=== PATIENT | male | born 1935 | race African-American/Black ===

== ENCOUNTER 2018-06-28 08:35 | Inpatient (IN) ==
[2018-06-28] MEDS ORDERED: METOCLOPRAMIDE 10 MG/2 ML VIAL IV STA (09:02)
[2018-06-28] MEDS ORDERED: ONDANSETRON 4 MG/2 ML VIAL IV STA (09:02)
[2018-06-28] MEDS ORDERED: PANTOPRAZOLE 40 MG VIAL IV STA (09:02)
[2018-06-28] MEDS ORDERED: metroNIDAZOLE INJ 500 MG in PREMIX 1 EACH IV STA (09:28)
[2018-06-28] MEDS ORDERED: LEVOFLOXACIN INJ 750 MG in PREMIX 1 EACH IV STA (09:28)
[2018-06-28 09:41] LABS: Barbiturates Screen,Urine Negative (Negative); Benzodiazepines Screen,Urine Negative (Negative); Cannabinoid Screen,Urine Negative (Negative); Opiate Screen,Urine Negative (Negative); Phencyclidine Screen,Urine Negative (Negative)
[2018-06-28 09:42] LABS: Apearance,Urine CLEAR (Clear); Bacteria,Urine Occasional /HPF (Few); Bilirubin,Urine Negative (Negative); Blood, Urine Negative (Negative); Glucose,Urine (UA) Negative (Negative); Ketones,Urine 20 mg/dL (Negative); Mucus,Urine Occasional /LPF (Occasional); Nitrite,Urine Negative (Negative); Protein,Urine Negative; RBC,Urine 3 /HPF (0-4); Urine Color Straw (Yellow); Urine Urobilinogen < 2.0 EU/DL (0.2-1.0)
[2018-06-28] MEDS ORDERED: THIAMINE INJ 100 MG, FOLIC ACID INJ 1 MG, MAGNESIUM SULF INJ 2 GM, MULTIVITAMIN INJ 10 ... IV SCH (10:00)
[2018-06-28 10:08] LABS: Basophils # 0.1 10*3/uL (0.0-0.2); Basophils % 0.4 % (0.0-0.8); Hematocrit 44.6 VOL% (42.0-52.0); Hemoglobin 13.9 GM/DL (14.0-18.0); Immature Granulocytes % 0.7 %; Immature Granulocytes Absolute 0.11 #; Lymphocytes # 1.1 10*3/uL (1.4-4.0); Lymphocytes % 6.5 % (21.2-54.2); Mean Corpuscular HGB Conc 31.2 GM/DL (32-36); Mean Corpuscular Hemoglobin 30 PG (27-34); Mean Corpuscular Volume 95.7 FL (87-102); Mean Platelet Volume 12.8 FL (9.6-12.0); Monocytes # 1.7 10*3/uL (0.11-0.8); Monocytes % 9.9 % (1.7-12.7); NRBC # 0.02 10*3/uL; Neutrophils # 13.8 10*3/uL (1.4-7.4); Neutrophils % 82.5 % (38.7-73.9); Platelet Count 260 T/CUMM (130-400); Red Blood Count 4.66 MC/CUMM (3.8-5.5); Red Cell Distribution Width 17.2 % (9.3-17.3); White Blood Count 16.7 T/CUMM (4-12)
[2018-06-28 10:15] LABS: Troponin I < 0.015 NG/ML (0.00-0.045)
[2018-06-28 10:31] LABS: Alanine Aminotransferase 178 U/L (16-61); Albumin 4.3 G/DL (3.4-5.0); Alkaline Phosphatase 157 U/L (45-117); Amylase 117 U/L (25-115); Aspartate Amino Transferase 632 U/L (0-37); Blood Urea Nitrogen 15 MG/DL (7-18); Calcium 9.2 MG/DL (8.5-10.1); Glucose 118 MG/DL (74-106); Osmolality,Calculated 291.6 MOS/KG (273-304); Potassium 3.3 MMOL/L (3.5-5.1); Sodium 146 MMOL/L (136-145); Total Protein 8.3 G/DL (6.4-8.3); Troponin I < 0.015 NG/ML (0.00-0.045)
[2018-06-28] MEDS ORDERED: ONDANSETRON 4 MG/2 ML VIAL IV PRN (12:07)
[2018-06-28] MEDS ORDERED: LORazepam 2 MG/1 ML VIAL IV PRN (12:15)
[2018-06-28] MEDS ORDERED: SODIUM CHLORIDE 0.9% 1,000 ML IV SCH (12:30)
[2018-06-28] MEDS: AMPICILLIN/SULBACTAM 3,000 MG in SODIUM CHLORIDE 0.9% 100 ML IV SCH ×2 (14:16→18:43)
[2018-06-28] MEDS: ENOXAPARIN 40 MG/0.4 ML SYRINGE SUBCUT SCH (14:17)
[2018-06-28] MEDS: LACTATED RINGERS 1,000 ML IV SCH ×2 (14:17→22:38)
[2018-06-28] MEDS: MORPHINE 4 MG/1 ML VIAL IV PRN ×3 (14:17→22:38)
[2018-06-29] MEDS: AMPICILLIN/SULBACTAM 3,000 MG in SODIUM CHLORIDE 0.9% 100 ML IV SCH ×3 (01:54→12:30)
[2018-06-29 04:03] LABS: Basophils % 0.3 % (0.0-0.8); Eosinophils % 0.1 % (0.00-10.9); Hemoglobin 11.9 GM/DL (14.0-18.0); Immature Granulocytes % 0.8 %; Immature Granulocytes Absolute 0.12 #; Lymphocytes # 0.6 10*3/uL (1.4-4.0); Lymphocytes % 3.7 % (21.2-54.2); Mean Corpuscular HGB Conc 31.3 GM/DL (32-36); Mean Corpuscular Hemoglobin 29 PG (27-34); Mean Corpuscular Volume 93.1 FL (87-102); Monocytes # 0.7 10*3/uL (0.11-0.8); Monocytes % 4.8 % (1.7-12.7); Neutrophils % 90.3 % (38.7-73.9); Platelet Count 234 T/CUMM (130-400); Red Blood Count 4.08 MC/CUMM (3.8-5.5); Red Cell Distribution Width 15.9 % (9.3-17.3); White Blood Count 15.5 T/CUMM (4-12)
[2018-06-29 04:37] LABS: Albumin 3.3 G/DL (3.4-5.0); Bilirubin,Total 3.5 MG/DL (0.2-1.0); Calcium 8.4 MG/DL (8.5-10.1); Osmolality,Calculated 277.5 MOS/KG (273-304); Potassium 3.8 MMOL/L (3.5-5.1); Risk Ratio 3.48; Thyroid Stimulating Hormone 0.182 uIU/ml (0.358-3.74); Total Protein 6.9 G/DL (6.4-8.3); VLDL CHOLESTEROL 68.2 MG/DL
[2018-06-29 05:20] LABS: Band Neutrophils 11 % (0-10); Lymphocytes 5 % (20-55); Metamyelocytes 1 %; Segmented Neutrophils 81 % (50-85); Total Cells Counted 100
[2018-06-29 05:21] LABS: Platelet Estimate Normal
[2018-06-29 05:22] LABS: Hypochromasia 1+; Target Cells Few
[2018-06-29] MEDS: LACTATED RINGERS 1,000 ML IV SCH ×2 (06:13→12:31)
[2018-06-29] MEDS: amLODIPine 5 MG TABLET PO SCH (09:26)
[2018-06-29] MEDS ORDERED: THIAMINE INJ 100 MG, FOLIC ACID INJ 1 MG, MAGNESIUM SULF INJ 2 GM, MULTIVITAMIN INJ 10 ... IV SCH (10:00)
[2018-06-29] MEDS: MORPHINE 4 MG/1 ML VIAL IV PRN (10:01)
[2018-06-29] MEDS: ACETAMINOPHEN 325 MG TABLET PO PRN (16:41)
[2018-06-29] MEDS: PIPERACILLIN/TAZOBACTAM 3,375 MG in SODIUM CHLORIDE 0.9% 100 ML IV SCH (16:41)
[2018-06-30] MEDS: PIPERACILLIN/TAZOBACTAM 3,375 MG in SODIUM CHLORIDE 0.9% 100 ML IV SCH ×3 (00:01→16:19)
[2018-06-30] MEDS: LACTATED RINGERS 1,000 ML IV SCH ×3 (00:02→12:30)
[2018-06-30 05:10] LABS: Basophils % 0.2 % (0.0-0.8); Hematocrit 37.6 VOL% (42.0-52.0); Hemoglobin 12.4 GM/DL (14.0-18.0); Immature Granulocytes % 1.8 %; Lymphocytes % 3.9 % (21.2-54.2); Mean Corpuscular Hemoglobin 30 PG (27-34); Mean Platelet Volume 11.4 FL (9.6-12.0); Monocytes % 4.5 % (1.7-12.7); Neutrophils % 89.6 % (38.7-73.9); Platelet Count 215 T/CUMM (130-400); Red Blood Count 4.13 MC/CUMM (3.8-5.5); Red Cell Distribution Width 15.8 % (9.3-17.3); White Blood Count 25.3 T/CUMM (4-12)
[2018-06-30 05:11] LABS: Basophils # 0.1 10*3/uL (0.0-0.2); Immature Granulocytes Absolute 0.46 #; Monocytes # 1.1 10*3/uL (0.11-0.8); Neutrophils # 22.7 10*3/uL (1.4-7.4)
[2018-06-30 05:45] LABS: Band Neutrophils 5 % (0-10); Hypochromasia 1+; Lymphocytes 3 % (20-55); Segmented Neutrophils 89 % (50-85); Target Cells Few; Total Cells Counted 100
[2018-06-30 05:46] LABS: Microcytosis Slight; Platelet Estimate Normal
[2018-06-30 05:48] LABS: Albumin 2.7 G/DL (3.4-5.0); Bilirubin,Total 7.6 MG/DL (0.2-1.0); Calcium 8.4 MG/DL (8.5-10.1); Potassium 3.8 MMOL/L (3.5-5.1); Total Protein 6.4 G/DL (6.4-8.3)
[2018-06-30] MEDS: amLODIPine 5 MG TABLET PO SCH (08:37)
[2018-06-30] MEDS ORDERED: PROPOFOL 200 MG/20 ML VIAL IV ONE (09:00)
[2018-06-30] MEDS ORDERED: PHENYLEPHRINE 1 MG/10 ML SYRINGE IV ONE (09:00)
[2018-06-30] MEDS ORDERED: ONDANSETRON 4 MG/2 ML VIAL ONE (09:00)
[2018-06-30] MEDS ORDERED: LIDOCAINE 2% 5 ML VIAL ONE (09:00)
[2018-06-30] MEDS ORDERED: fentaNYL 100 MCG/2 ML VIAL ONE ×2 (09:00→15:06)
[2018-06-30] MEDS ORDERED: ESMOLOL 100 MG/10 ML VIAL IV ONE (09:00)
[2018-06-30] MEDS ORDERED: SUCCINYLCHOLINE 200 MG/10 ML VIAL ONE (09:00)
[2018-06-30] MEDS: MORPHINE 4 MG/1 ML VIAL IV PRN (10:34)
[2018-06-30] MEDS ORDERED: INDOMETHACIN SUPP 50 MG SUPP RECTAL ONE (11:51)
[2018-06-30] MEDS ORDERED: SEVOFLURANE 1 UNIT/15 MINUTE INH ONE (15:07)
[2018-07-01] MEDS: LACTATED RINGERS 1,000 ML IV SCH ×4 (00:01→22:54)
[2018-07-01] MEDS: PIPERACILLIN/TAZOBACTAM 3,375 MG in SODIUM CHLORIDE 0.9% 100 ML IV SCH ×4 (00:02→23:25)
[2018-07-01 05:18] LABS: Basophils % 0.2 % (0.0-0.8); Eosinophils % 0.2 % (0.00-10.9); Hematocrit 33.9 VOL% (42.0-52.0); Immature Granulocytes % 1.1 %; Immature Granulocytes Absolute 0.19 #; Lymphocytes # 0.9 10*3/uL (1.4-4.0); Lymphocytes % 5.5 % (21.2-54.2); Mean Corpuscular HGB Conc 32.4 GM/DL (32-36); Mean Corpuscular Hemoglobin 29 PG (27-34); Mean Corpuscular Volume 90.6 FL (87-102); Mean Platelet Volume 11.2 FL (9.6-12.0); Platelet Count 198 T/CUMM (130-400); Red Blood Count 3.74 MC/CUMM (3.8-5.5); Red Cell Distribution Width 16.5 % (9.3-17.3); White Blood Count 17.2 T/CUMM (4-12)
[2018-07-01 05:57] LABS: Bilirubin,Total 8.2 MG/DL (0.2-1.0); Osmolality,Calculated 281.3 MOS/KG (273-304); Potassium 3.5 MMOL/L (3.5-5.1); Total Protein 5.6 G/DL (6.4-8.3)
[2018-07-01 06:12] LABS: Free T4 (Free Thyroxine) 1.4 NG/DL (0.76-1.46)
[2018-07-01] MEDS: amLODIPine 5 MG TABLET PO SCH (09:29)
[2018-07-01] MEDS ORDERED: TISSUE ADHESIVE 1 EACH APPLICATOR TOP ONE (12:28)
[2018-07-01] MEDS ORDERED: BUPIVACAINE 0.5% 50 ML VIAL ONE (12:28)
[2018-07-01] MEDS ORDERED: LIDOCAINE 1%/EPI INJ 20 ML VIAL ONE (12:28)
[2018-07-01] MEDS: ENOXAPARIN 40 MG/0.4 ML SYRINGE SUBCUT SCH (13:00)
[2018-07-01] MEDS ORDERED: SUGAMMADEX 200 MG/2 ML VIAL IV ONE (14:09)
[2018-07-01] MEDS ORDERED: fentaNYL 100 MCG/2 ML VIAL ONE (14:32)
[2018-07-01] MEDS ORDERED: PROPOFOL 200 MG/20 ML VIAL IV ONE (14:32)
[2018-07-01] MEDS ORDERED: SEVOFLURANE 1 UNIT/15 MINUTE INH ONE (14:32)
[2018-07-01] MEDS ORDERED: ONDANSETRON 4 MG/2 ML VIAL ONE ×2 (14:32→14:34)
[2018-07-01] MEDS ORDERED: ACETAMINOPHEN 1,000 MG/100 ML VIAL IV ONE (14:33)
[2018-07-01] MEDS ORDERED: PHENYLEPHRINE 1 MG/10 ML SYRINGE IV ONE (14:33)
[2018-07-01] MEDS ORDERED: MEPERIDINE 25 MG/1 ML VIAL ONE (14:34)
[2018-07-01] MEDS ORDERED: SUCCINYLCHOLINE 200 MG/10 ML VIAL ONE (14:34)
[2018-07-01] MEDS ORDERED: ROCURONIUM 100 MG/10 ML VIAL IV ONE (14:34)
[2018-07-01] MEDS ORDERED: PROMETHAZINE INJ 25 MG in SODIUM CHLORIDE 0.9% 50 ML IV PRN (14:35)
[2018-07-01] MEDS ORDERED: HYDROmorphone 2 MG/1 ML VIAL IV PRN (14:35)
[2018-07-01] MEDS ORDERED: MEPERIDINE 25 MG/1 ML VIAL IV PRN (14:35)
[2018-07-01] MEDS ORDERED: ONDANSETRON 4 MG/2 ML VIAL IV PRN (14:35)
[2018-07-01] MEDS: MULTIVITAMIN (CENTRUM) TABLET PO SCH (14:42)
[2018-07-01] MEDS: THIAMINE 100 MG TABLET PO SCH (14:42)
[2018-07-01] MEDS: FOLIC ACID 1 MG TABLET PO SCH (14:42)
[2018-07-02 05:02] LABS: Basophils % 0.3 % (0.0-0.8); Eosinophils # 0.1 10*3/uL (0.0-0.87); Eosinophils % 0.4 % (0.00-10.9); Hematocrit 33.2 VOL% (42.0-52.0); Hemoglobin 10.9 GM/DL (14.0-18.0); Immature Granulocytes % 1.6 %; Immature Granulocytes Absolute 0.25 #; Lymphocytes # 0.9 10*3/uL (1.4-4.0); Lymphocytes % 6.1 % (21.2-54.2); Mean Corpuscular HGB Conc 32.8 GM/DL (32-36); Mean Corpuscular Hemoglobin 29 PG (27-34); Mean Corpuscular Volume 88.8 FL (87-102); Mean Platelet Volume 11.2 FL (9.6-12.0); Monocytes # 1.3 10*3/uL (0.11-0.8); Monocytes % 8.3 % (1.7-12.7); Neutrophils # 12.7 10*3/uL (1.4-7.4); Neutrophils % 83.3 % (38.7-73.9); Platelet Count 196 T/CUMM (130-400); Red Blood Count 3.74 MC/CUMM (3.8-5.5); Red Cell Distribution Width 16.5 % (9.3-17.3); White Blood Count 15.3 T/CUMM (4-12)
[2018-07-02 05:23] LABS: Albumin 1.9 G/DL (3.4-5.0); Bilirubin,Total 3.5 MG/DL (0.2-1.0); Calcium 7.8 MG/DL (8.5-10.1); Osmolality,Calculated 275.5 MOS/KG (273-304); Potassium 3.4 MMOL/L (3.5-5.1); Total Protein 5.9 G/DL (6.4-8.3)
[2018-07-02] MEDS: LACTATED RINGERS 1,000 ML IV SCH ×3 (06:14→13:35)
[2018-07-02] MEDS ORDERED: POTASSIUM CHLORIDE 20 MEQ TABLET PO ONE (07:00)
[2018-07-02] MEDS: PIPERACILLIN/TAZOBACTAM 3,375 MG in SODIUM CHLORIDE 0.9% 100 ML IV SCH (08:43)
[2018-07-02] MEDS: THIAMINE 100 MG TABLET PO SCH (08:43)
[2018-07-02] MEDS: ACETAMINOPHEN 325 MG TABLET PO PRN ×2 (08:43→16:31)
[2018-07-02] MEDS: FOLIC ACID 1 MG TABLET PO SCH (08:43)
[2018-07-02] MEDS: MULTIVITAMIN (CENTRUM) TABLET PO SCH (08:43)
[2018-07-02] MEDS: amLODIPine 5 MG TABLET PO SCH (08:43)
[2018-07-02] MEDS ORDERED: ALBUTEROL 2.5 MG/3 ML NEB RESP TX PRN (12:36)
[2018-07-02] MEDS ORDERED: guaiFENesin 200 MG/10 ML UDCUP PO PRN (12:46)
[2018-07-02] MEDS ORDERED: LACTATED RINGERS 1,000 ML IV SCH (13:00)
[2018-07-02] MEDS: ENOXAPARIN 40 MG/0.4 ML SYRINGE SUBCUT SCH (13:14)
[2018-07-02] MEDS: BRIMONIDINE 0.1% OPH SOLN 5 ML BOTTLE BOTH EYES SCH (20:35)
[2018-07-02] MEDS: BIMATOPROST 0.01% OPH SOLN 2.5 ML BOTTLE BOTH EYES SCH (20:35)
[2018-07-03 05:32] LABS: Basophils # 0.1 10*3/uL (0.0-0.2); Basophils % 0.6 % (0.0-0.8); Eosinophils # 0.1 10*3/uL (0.0-0.87); Eosinophils % 0.6 % (0.00-10.9); Hematocrit 32.8 VOL% (42.0-52.0); Hemoglobin 10.6 GM/DL (14.0-18.0); Immature Granulocytes % 4.8 %; Immature Granulocytes Absolute 0.67 #; Lymphocytes # 1.6 10*3/uL (1.4-4.0); Lymphocytes % 11.3 % (21.2-54.2); Mean Corpuscular HGB Conc 32.3 GM/DL (32-36); Mean Corpuscular Hemoglobin 29 PG (27-34); Mean Corpuscular Volume 90.9 FL (87-102); Mean Platelet Volume 11.6 FL (9.6-12.0); Monocytes # 1.7 10*3/uL (0.11-0.8); Monocytes % 12.1 % (1.7-12.7); Neutrophils # 9.8 10*3/uL (1.4-7.4); Neutrophils % 70.6 % (38.7-73.9); Platelet Count 198 T/CUMM (130-400); Red Blood Count 3.61 MC/CUMM (3.8-5.5); Red Cell Distribution Width 16.1 % (9.3-17.3); White Blood Count 13.9 T/CUMM (4-12)
[2018-07-03 05:40] LABS: Bilirubin,Total 2.2 MG/DL (0.2-1.0); Calcium 8.3 MG/DL (8.5-10.1); Osmolality,Calculated 270.8 MOS/KG (273-304); Potassium 3.8 MMOL/L (3.5-5.1); Total Protein 6.1 G/DL (6.4-8.3)
[2018-07-03 06:12] LABS: Lymphocytes 11 % (20-55); Platelet Estimate Adequate; Segmented Neutrophils 72 % (50-85); Total Cells Counted 100
[2018-07-03 06:13] LABS: Hypochromasia 1+; Ovalocytes Slight; Target Cells Few
[2018-07-03] MEDS: BRIMONIDINE 0.1% OPH SOLN 5 ML BOTTLE BOTH EYES SCH ×2 (08:35→20:09)
[2018-07-03] MEDS: ACETAMINOPHEN 325 MG TABLET PO PRN ×2 (08:35→18:33)
[2018-07-03] MEDS: ASPIRIN EC 81 MG TABLET PO SCH (08:35)
[2018-07-03] MEDS: FOLIC ACID 1 MG TABLET PO SCH (08:35)
[2018-07-03] MEDS: amLODIPine 5 MG TABLET PO SCH (08:36)
[2018-07-03] MEDS: THIAMINE 100 MG TABLET PO SCH (08:36)
[2018-07-03] MEDS: MULTIVITAMIN (CENTRUM) TABLET PO SCH (08:36)
[2018-07-03] MEDS: ENOXAPARIN 40 MG/0.4 ML SYRINGE SUBCUT SCH (13:15)
[2018-07-03] MEDS ORDERED: cefTRIAXone 2,000 MG in SYRINGE 1 EACH IV SCH (14:00)
[2018-07-03] MEDS: BIMATOPROST 0.01% OPH SOLN 2.5 ML BOTTLE BOTH EYES SCH (20:09)
[2018-07-04 04:48] LABS: Basophils # 0.1 10*3/uL (0.0-0.2); Basophils % 0.6 % (0.0-0.8); Eosinophils # 0.1 10*3/uL (0.0-0.87); Eosinophils % 0.8 % (0.00-10.9); Hematocrit 31.3 VOL% (42.0-52.0); Hemoglobin 10.2 GM/DL (14.0-18.0); Immature Granulocytes % 8.9 %; Immature Granulocytes Absolute 1.06 #; Lymphocytes # 1.5 10*3/uL (1.4-4.0); Lymphocytes % 12.6 % (21.2-54.2); Mean Corpuscular HGB Conc 32.6 GM/DL (32-36); Mean Corpuscular Hemoglobin 30 PG (27-34); Mean Corpuscular Volume 90.7 FL (87-102); Mean Platelet Volume 11.5 FL (9.6-12.0); Monocytes # 1.5 10*3/uL (0.11-0.8); Monocytes % 12.2 % (1.7-12.7); Neutrophils # 7.7 10*3/uL (1.4-7.4); Neutrophils % 64.9 % (38.7-73.9); Platelet Count 251 T/CUMM (130-400); Red Blood Count 3.45 MC/CUMM (3.8-5.5); Red Cell Distribution Width 15.8 % (9.3-17.3); White Blood Count 11.9 T/CUMM (4-12)
[2018-07-04 05:05] LABS: Albumin 2.2 G/DL (3.4-5.0); Bilirubin,Total 1.6 MG/DL (0.2-1.0); Calcium 8.1 MG/DL (8.5-10.1); Osmolality,Calculated 274.7 MOS/KG (273-304); Potassium 3.4 MMOL/L (3.5-5.1); Total Protein 6.4 G/DL (6.4-8.3)
[2018-07-04 05:14] LABS: Lymphocytes 25 % (20-55); Platelet Estimate Normal; Polychromasia Few; Segmented Neutrophils 67 % (50-85); Total Cells Counted 100
[2018-07-04] MEDS ORDERED: POTASSIUM CHLORIDE 20 MEQ TABLET PO ONE (07:31)
[2018-07-04] MEDS: THIAMINE 100 MG TABLET PO SCH (09:15)
[2018-07-04] MEDS: BRIMONIDINE 0.1% OPH SOLN 5 ML BOTTLE BOTH EYES SCH (09:15)
[2018-07-04] MEDS: amLODIPine 5 MG TABLET PO SCH (09:15)
[2018-07-04] MEDS: FOLIC ACID 1 MG TABLET PO SCH (09:15)
[2018-07-04] MEDS: ASPIRIN EC 81 MG TABLET PO SCH (09:15)
[2018-07-04] MEDS: MULTIVITAMIN (CENTRUM) TABLET PO SCH (09:15)
[2018-07-04 12:28] VITALS: BP 118/67
[2018-07-04] MEDS: ENOXAPARIN 40 MG/0.4 ML SYRINGE SUBCUT SCH (12:28)
== END 2018-07-04 14:00 | disposition home or self-care (01) | DRG 418 ==
LOC: EDBD → EDUNIT# → N.ED 08:35 → N.EDINP 12:07 → SUATTDRO 12:07 → N.EDINP 13:34 → N.3E 13:50
PROVIDERS: ADMIT Emergency Medicine; ATTEND Internal Medicine Nephrology
PROC: ERCPWSP (ICD-10-PCS; 2018-06-30 12:50)
PROC: LAPCHOL (2018-07-01 12:55)

== ENCOUNTER 2020-03-15 15:23 | Inpatient (IN) ==
[2020-03-15 17:23] LABS: Basophils % 0.2 % (0.0-0.8); Eosinophils % 0.1 % (0.00-10.9); Hematocrit 37.6 VOL% (42.0-52.0); Hemoglobin 12.8 GM/DL (14.0-18.0); Immature Granulocytes % 1.1 %; Immature Granulocytes Absolute 0.09 #; Lymphocytes # 1.1 10*3/uL (1.4-4.0); Lymphocytes % 13.5 % (21.2-54.2); Mean Corpuscular Volume 92.6 FL (87-102); Mean Platelet Volume 10.2 FL (9.6-12.0); Monocytes % 8.9 % (1.7-12.7); Neutrophils % 76.2 % (38.7-73.9); Platelet Count 561 T/CUMM (130-400); Red Blood Count 4.06 MC/CUMM (3.8-5.5); Red Cell Distribution Width 15.9 % (9.3-17.3); White Blood Count 8.3 T/CUMM (4-12)
[2020-03-15] MEDS ORDERED: SODIUM CHLORIDE 0.9% 1,000 ML IV STA (17:33)
[2020-03-15] MEDS ORDERED: cefTRIAXone 1,000 MG in SODIUM CHLORIDE 0.9% 100 ML IV STA (17:34)
[2020-03-15 17:40] LABS: Albumin 2.8 G/DL (3.4-5.0); Bilirubin,Total 0.4 MG/DL (0.2-1.0); Calcium 9.4 MG/DL (8.5-10.1); Ferritin 1889.6 ng/ml (26-388); Total Protein 7.7 G/DL (6.4-8.3)
[2020-03-15] MEDS ORDERED: ACETAMINOPHEN 325 MG TABLET PO PRN (18:07)
[2020-03-15] MEDS ORDERED: ONDANSETRON 4 MG/2 ML VIAL IV PRN (18:07)
[2020-03-15] MEDS ORDERED: ZALEPLON 5 MG CAPSULE PO PRN (18:07)
[2020-03-15] MEDS ORDERED: DEXTROSE 50% 25 GM/50 ML VIAL IV PRN (18:07)
[2020-03-15] MEDS ORDERED: GLUCAGON 1 MG VIAL IM PRN (18:07)
[2020-03-15] MEDS: FAMOTIDINE 20 MG TABLET PO SCH (21:04)
[2020-03-15] MEDS: ENOXAPARIN 40 MG/0.4 ML SYRINGE SUBCUT SCH (21:04)
[2020-03-15] MEDS: AZITHROMYCIN 250 MG TABLET PO SCH (21:04)
[2020-03-16] MEDS: ALBUTEROL INHALER 18 GM INH SCH ×4 (01:05→19:55)
[2020-03-16 05:30] LABS: Basophils % 0.3 % (0.0-0.8); Eosinophils # 0.1 10*3/uL (0.0-0.87); Eosinophils % 0.9 % (0.00-10.9); Hematocrit 37.7 VOL% (42.0-52.0); Hemoglobin 12.6 GM/DL (14.0-18.0); Immature Granulocytes % 1.3 %; Immature Granulocytes Absolute 0.09 #; Lymphocytes # 1.5 10*3/uL (1.4-4.0); Lymphocytes % 22.9 % (21.2-54.2); Mean Corpuscular HGB Conc 33.4 GM/DL (32-36); Mean Corpuscular Volume 94.5 FL (87-102); Mean Platelet Volume 10.7 FL (9.6-12.0); Monocytes % 10.8 % (1.7-12.7); Neutrophils % 63.8 % (38.7-73.9); Platelet Count 454 T/CUMM (130-400); Red Blood Count 3.99 MC/CUMM (3.8-5.5); Red Cell Distribution Width 15.7 % (9.3-17.3); White Blood Count 6.7 T/CUMM (4-12)
[2020-03-16 05:50] LABS: Albumin 2.5 G/DL (3.4-5.0); Bilirubin,Total 0.5 MG/DL (0.2-1.0); Calcium 9.2 MG/DL (8.5-10.1); Ferritin 1432.1 ng/ml (26-388); Total Protein 7.2 G/DL (6.4-8.3)
[2020-03-16] MEDS ORDERED: DEXAMETHASONE 10 MG/1 ML VIAL IV SCH (09:00)
[2020-03-16] MEDS: FAMOTIDINE 20 MG TABLET PO SCH ×2 (10:09→21:27)
[2020-03-16] MEDS: CHOLECALCIFEROL 1,000 UNIT TABLET PO SCH (10:09)
[2020-03-16] MEDS: ZINC SULFATE 220 MG CAPSULE PO SCH (10:09)
[2020-03-16] MEDS: CETIRIZINE 10 MG TABLET PO SCH (10:09)
[2020-03-16] MEDS: ASCORBIC ACID 500 MG TABLET PO SCH (10:09)
[2020-03-16] MEDS: methylPREDNISolone SOD SUC 40 MG/1 ML VIAL IV SCH ×2 (14:40→19:56)
[2020-03-16] MEDS: cefTRIAXone 1,000 MG in SYRINGE 1 EACH IV SCH (17:05)
[2020-03-16] MEDS: ENOXAPARIN 40 MG/0.4 ML SYRINGE SUBCUT SCH (21:26)
[2020-03-16] MEDS: AZITHROMYCIN 250 MG TABLET PO SCH (21:27)
[2020-03-17] MEDS: methylPREDNISolone SOD SUC 40 MG/1 ML VIAL IV SCH ×4 (01:09→18:05)
[2020-03-17] MEDS: ALBUTEROL INHALER 18 GM INH SCH ×4 (01:09→18:05)
[2020-03-17 05:27] LABS: Basophils % 0.1 % (0.0-0.8); Hematocrit 37.8 VOL% (42.0-52.0); Hemoglobin 12.6 GM/DL (14.0-18.0); Immature Granulocytes % 0.8 %; Immature Granulocytes Absolute 0.06 #; Lymphocytes # 0.8 10*3/uL (1.4-4.0); Lymphocytes % 11.3 % (21.2-54.2); Mean Corpuscular HGB Conc 33.3 GM/DL (32-36); Mean Corpuscular Volume 93.8 FL (87-102); Mean Platelet Volume 11.9 FL (9.6-12.0); Monocytes % 3.3 % (1.7-12.7); Neutrophils % 84.5 % (38.7-73.9); Platelet Count 425 T/CUMM (130-400); Red Blood Count 4.03 MC/CUMM (3.8-5.5); Red Cell Distribution Width 15.3 % (9.3-17.3); White Blood Count 7.4 T/CUMM (4-12)
[2020-03-17 05:54] LABS: Alanine Aminotransferase 43 U/L (16-61); Albumin 2.5 G/DL (3.4-5.0); Alkaline Phosphatase 72 U/L (45-117); Aspartate Amino Transferase 47 U/L (0-37); Bilirubin,Direct < 0.100 MG/DL (0.0-0.20); Bilirubin,Indirect 0.3 MG/DL (0.0-1.0); Bilirubin,Total < 0.39 MG/DL (0.2-1.0); Blood Urea Nitrogen 12 MG/DL (7-18); Calcium 9.5 MG/DL (8.5-10.1); Estimated Glom Filtration Rate 89 ML/MIN; Ferritin 1099.2 ng/ml (26-388); Glucose 225 MG/DL (74-106); Osmolality,Calculated 274.2 MOS/KG (273-304); Total Protein 7.6 G/DL (6.4-8.3)
[2020-03-17] MEDS: ASCORBIC ACID 500 MG TABLET PO SCH (08:43)
[2020-03-17] MEDS: CETIRIZINE 10 MG TABLET PO SCH (08:43)
[2020-03-17] MEDS: FAMOTIDINE 20 MG TABLET PO SCH ×2 (08:43→20:45)
[2020-03-17] MEDS: CHOLECALCIFEROL 1,000 UNIT TABLET PO SCH (08:43)
[2020-03-17] MEDS ORDERED: REMDESIVIR 200 MG in SODIUM CHLORIDE 0.9% 210 ML IV ONE (09:00)
[2020-03-17] MEDS ORDERED: SODIUM CHLORIDE 0.9% 1,000 ML IV PRN (13:10)
[2020-03-17] MEDS: cefTRIAXone 1,000 MG in SYRINGE 1 EACH IV SCH (15:45)
[2020-03-17] MEDS: ENOXAPARIN 40 MG/0.4 ML SYRINGE SUBCUT SCH (20:45)
[2020-03-17] MEDS: AZITHROMYCIN 250 MG TABLET PO SCH (20:45)
[2020-03-18] MEDS: methylPREDNISolone SOD SUC 40 MG/1 ML VIAL IV SCH ×4 (02:00→18:08)
[2020-03-18] MEDS: ALBUTEROL INHALER 18 GM INH SCH ×4 (02:00→18:08)
[2020-03-18 07:18] LABS: Basophils % 0.2 % (0.0-0.8); Eosinophils % 0.2 % (0.00-10.9); Hematocrit 35.4 VOL% (42.0-52.0); Immature Granulocytes % 0.9 %; Immature Granulocytes Absolute 0.18 #; Lymphocytes % 5.2 % (21.2-54.2); Mean Corpuscular HGB Conc 33.9 GM/DL (32-36); Mean Corpuscular Volume 93.9 FL (87-102); Mean Platelet Volume 10.4 FL (9.6-12.0); Monocytes % 3.5 % (1.7-12.7); Platelet Count 635 T/CUMM (130-400); Red Blood Count 3.77 MC/CUMM (3.8-5.5); Red Cell Distribution Width 15.3 % (9.3-17.3); White Blood Count 19.3 T/CUMM (4-12)
[2020-03-18 07:48] LABS: Alanine Aminotransferase 40 U/L (16-61); Albumin 2.5 G/DL (3.4-5.0); Alkaline Phosphatase 59 U/L (45-117); Aspartate Amino Transferase 43 U/L (0-37); Bilirubin,Direct < 0.100 MG/DL (0.0-0.20); Bilirubin,Indirect 0.3 MG/DL (0.0-1.0); Bilirubin,Total < 0.39 MG/DL (0.2-1.0); Blood Urea Nitrogen 17 MG/DL (7-18); Calcium 9.1 MG/DL (8.5-10.1); Estimated Glom Filtration Rate 89 ML/MIN; Ferritin 925.7 ng/ml (26-388); Glucose 146 MG/DL (74-106); Osmolality,Calculated 279.7 MOS/KG (273-304)
[2020-03-18] MEDS: ASCORBIC ACID 500 MG TABLET PO SCH (10:19)
[2020-03-18] MEDS: ZINC SULFATE 220 MG CAPSULE PO SCH (10:19)
[2020-03-18] MEDS: CHOLECALCIFEROL 1,000 UNIT TABLET PO SCH (10:19)
[2020-03-18] MEDS: FAMOTIDINE 20 MG TABLET PO SCH ×2 (10:19→20:44)
[2020-03-18] MEDS: REMDESIVIR 100 MG in SODIUM CHLORIDE 0.9% 230 ML IV SCH (10:19)
[2020-03-18] MEDS: CETIRIZINE 10 MG TABLET PO SCH (10:19)
[2020-03-18] MEDS: cefTRIAXone 1,000 MG in SYRINGE 1 EACH IV SCH (16:12)
[2020-03-18] MEDS: ENOXAPARIN 40 MG/0.4 ML SYRINGE SUBCUT SCH (20:44)
[2020-03-18] MEDS: AZITHROMYCIN 250 MG TABLET PO SCH (20:44)
[2020-03-19] MEDS: ALBUTEROL INHALER 18 GM INH SCH ×4 (00:05→18:40)
[2020-03-19] MEDS: methylPREDNISolone SOD SUC 40 MG/1 ML VIAL IV SCH ×4 (00:05→18:40)
[2020-03-19 06:58] LABS: Basophils % 0.2 % (0.0-0.8); Hematocrit 34.7 VOL% (42.0-52.0); Hemoglobin 11.5 GM/DL (14.0-18.0); Immature Granulocytes % 1.6 %; Lymphocytes # 0.8 10*3/uL (1.4-4.0); Mean Corpuscular HGB Conc 33.1 GM/DL (32-36); Mean Corpuscular Volume 95.1 FL (87-102); Mean Platelet Volume 11.5 FL (9.6-12.0); Monocytes % 3.9 % (1.7-12.7); Neutrophils % 90.3 % (38.7-73.9); Platelet Count 586 T/CUMM (130-400); Red Blood Count 3.65 MC/CUMM (3.8-5.5); Red Cell Distribution Width 15.5 % (9.3-17.3)
[2020-03-19 08:22] LABS: Calcium 8.9 MG/DL (8.5-10.1); Ferritin 705.6 ng/ml (26-388); Osmolality,Calculated 281.5 MOS/KG (273-304)
[2020-03-19] MEDS: CHOLECALCIFEROL 1,000 UNIT TABLET PO SCH (09:20)
[2020-03-19] MEDS: FAMOTIDINE 20 MG TABLET PO SCH ×2 (09:20→21:05)
[2020-03-19] MEDS: ASCORBIC ACID 500 MG TABLET PO SCH (09:21)
[2020-03-19] MEDS: CETIRIZINE 10 MG TABLET PO SCH (09:21)
[2020-03-19] MEDS: REMDESIVIR 100 MG in SODIUM CHLORIDE 0.9% 230 ML IV SCH (10:30)
[2020-03-19 10:46] LABS: Atypical Lymphocytes Few; Lymphocytes 13 % (20-55); Metamyelocytes 2 %; Microcytosis Slight; Myelocytes 2 %; Platelet Estimate Increased; Polychromasia Slight; Segmented Neutrophils 75 % (50-85); Total Cells Counted 100
[2020-03-19] MEDS: cefTRIAXone 1,000 MG in SYRINGE 1 EACH IV SCH (15:32)
[2020-03-19] MEDS: ENOXAPARIN 40 MG/0.4 ML SYRINGE SUBCUT SCH (21:05)
[2020-03-19] MEDS: AZITHROMYCIN 250 MG TABLET PO SCH (21:05)
[2020-03-19 21:43] LABS: Bilirubin,Urine Negative (Negative); Blood, Urine Negative (Negative); Glucose,Urine (UA) 50 mg/dL (Negative); Ketones,Urine Negative (Negative); Mucus,Urine Occasional /LPF (Occasional); Nitrite,Urine Negative (Negative); Protein,Urine Negative; RBC,Urine <1 /HPF (0-4); Urine Appearance CLEAR (Clear); Urine Color Yellow (Yellow); Urine Specific Gravity 1.015 (1.001-1.035); Urine Urobilinogen < 2.0 EU/DL (0.2-1.0); WBC,Urine <1 /HPF (0-6)
[2020-03-20] MEDS: methylPREDNISolone SOD SUC 40 MG/1 ML VIAL IV SCH ×4 (01:35→23:10)
[2020-03-20] MEDS: ALBUTEROL INHALER 18 GM INH SCH ×5 (01:35→18:34)
[2020-03-20] MEDS: CHOLECALCIFEROL 1,000 UNIT TABLET PO SCH (09:35)
[2020-03-20] MEDS: CETIRIZINE 10 MG TABLET PO SCH (09:35)
[2020-03-20] MEDS: ZINC SULFATE 220 MG CAPSULE PO SCH (09:35)
[2020-03-20] MEDS: ASCORBIC ACID 500 MG TABLET PO SCH (09:35)
[2020-03-20] MEDS: FAMOTIDINE 20 MG TABLET PO SCH ×2 (09:40→20:05)
[2020-03-20] MEDS: REMDESIVIR 100 MG in SODIUM CHLORIDE 0.9% 230 ML IV SCH (12:15)
[2020-03-20] MEDS: cefTRIAXone 1,000 MG in SYRINGE 1 EACH IV SCH (15:15)
[2020-03-20] MEDS: AZITHROMYCIN 250 MG TABLET PO SCH (20:05)
[2020-03-20] MEDS: ENOXAPARIN 40 MG/0.4 ML SYRINGE SUBCUT SCH (20:05)
[2020-03-21] MEDS: ALBUTEROL INHALER 18 GM INH SCH ×3 (00:55→12:00)
[2020-03-21 06:08] LABS: Basophils # 0.1 10*3/uL (0.0-0.2); Basophils % 0.3 % (0.0-0.8); Hematocrit 34.8 VOL% (42.0-52.0); Hemoglobin 11.8 GM/DL (14.0-18.0); Immature Granulocytes % 4.9 %; Immature Granulocytes Absolute 1.15 #; Lymphocytes % 4.5 % (21.2-54.2); Mean Corpuscular HGB Conc 33.9 GM/DL (32-36); Mean Corpuscular Volume 93.3 FL (87-102); Monocytes % 6.3 % (1.7-12.7); NRBC # 0.03 10*3/uL; Platelet Count 596 T/CUMM (130-400); Red Blood Count 3.73 MC/CUMM (3.8-5.5); Red Cell Distribution Width 15.3 % (9.3-17.3); White Blood Count 23.3 T/CUMM (4-12)
[2020-03-21 06:37] LABS: Calcium 9.1 MG/DL (8.5-10.1); Osmolality,Calculated 289.4 MOS/KG (273-304)
[2020-03-21 06:56] LABS: Hypochromasia 1+; Lymphocytes 7 % (20-55); Microcytosis 1+; Platelet Estimate Adequate; Segmented Neutrophils 90 % (50-85); Total Cells Counted 100
[2020-03-21] MEDS: REMDESIVIR 100 MG in SODIUM CHLORIDE 0.9% 230 ML IV SCH (09:20)
[2020-03-21] MEDS: methylPREDNISolone SOD SUC 40 MG/1 ML VIAL IV SCH (09:20)
[2020-03-21] MEDS: CHOLECALCIFEROL 1,000 UNIT TABLET PO SCH (09:20)
[2020-03-21] MEDS: FAMOTIDINE 20 MG TABLET PO SCH (09:20)
[2020-03-21] MEDS: CETIRIZINE 10 MG TABLET PO SCH (09:20)
[2020-03-21] MEDS: ASCORBIC ACID 500 MG TABLET PO SCH (09:20)
[2020-03-21 12:30] VITALS: BP 155/72
== END 2020-03-21 15:43 | disposition home health service (06) | DRG 177 ==
LOC: N.ED 15:23 → N.2E 18:07 → SUATTDRO 18:07 → N.2E 19:25
PROVIDERS: ADMIT Internal Medicine; ATTEND Internal Medicine

== ENCOUNTER 2021-03-10 08:14 | Inpatient (IN) ==
[2021-03-10] MEDS ORDERED: SODIUM CHLORIDE 0.9% 500 ML IV STA (08:51)
[2021-03-10] MEDS ORDERED: DILTIAZEM 50 MG/10 ML VIAL IV STA (08:51)
[2021-03-10] MEDS ORDERED: DILTIAZEM 100 MG VIAL.ADD IV ONE (09:00)
[2021-03-10] MEDS ORDERED: DILTIAZEM 50 MG/10 ML VIAL IV ONE (09:01)
[2021-03-10] MEDS: DILTIAZEM INJ 100 MG in SODIUM CHLORIDE 0.9% 100 ML IV SCH (09:16)
[2021-03-10 09:25] LABS: Basophils % 0.4 % (0.0-0.8); Hematocrit 38.6 VOL% (42.0-52.0); Hemoglobin 12.7 GM/DL (14.0-18.0); Immature Granulocytes Absolute 0.05 #; Lymphocytes # 0.6 10*3/uL (1.4-4.0); Lymphocytes % 11.4 % (21.2-54.2); Mean Corpuscular HGB Conc 32.9 GM/DL (32-36); Mean Platelet Volume 10.4 FL (9.6-12.0); Monocytes % 6.1 % (1.7-12.7); NRBC # 0.03 10*3/uL; Neutrophils % 81.1 % (38.7-73.9); Platelet Count 171 T/CUMM (130-400); Red Blood Count 3.71 MC/CUMM (3.8-5.5); Red Cell Distribution Width 15.5 % (9.3-17.3); White Blood Count 4.9 T/CUMM (4-12)
[2021-03-10 09:58] LABS: Bilirubin,Total 0.7 MG/DL (0.20-1.00); Calcium 8.4 MG/DL (8.5-10.1); Osmolality,Calculated 284.7 MOS/KG (273-304); Potassium 3.2 MMOL/L (3.5-5.1); Thyroid Stimulating Hormone 0.388 uIU/ml (0.358-3.74)
[2021-03-10 10:08] LABS: Band Neutrophils 2 % (0-10); Lymphocytes 17 % (20-55); Nucleated Red Blood Cells 1 (0-5); Segmented Neutrophils 76 % (50-85); Total Cells Counted 100
[2021-03-10 10:09] LABS: Atypical Lymphocytes Few; Hypochromasia 1+; Macrocytosis Slight; Microcytosis Slight; Target Cells Few
[2021-03-10 10:10] LABS: Anisocytosis 1+; Ovalocytes Few; Platelet Estimate Adequate; Stomatocytes Few
[2021-03-10 10:14] LABS: Barbiturates Screen,Urine Negative (Negative); Benzodiazepines Screen,Urine Negative (Negative); Cannabinoid Screen,Urine Negative (Negative); Opiate Screen,Urine Negative (Negative); Phencyclidine Screen,Urine Negative (Negative)
[2021-03-10] MEDS ORDERED: METOPROLOL TARTRATE 25 MG TABLET PO STA (10:19)
[2021-03-10] MEDS ORDERED: SILVER SULFADIAZINE 1% CREAM 25 GM TUBE TOP STA (10:19)
[2021-03-10] MEDS ORDERED: SILVER SULFADIAZINE 1% CREAM 25 GM TUBE TOP ONE (10:21)
[2021-03-10] MEDS ORDERED: METOPROLOL TARTRATE 25 MG TABLET ONE (10:22)
[2021-03-10] MEDS ORDERED: POTASSIUM CHLORIDE RIDER 20 MEQ/100 ML PREMIX IV STA (10:23)
[2021-03-10] MEDS ORDERED: POTASSIUM CHLORIDE 20 MEQ PACK ONE (10:34)
[2021-03-10] MEDS ORDERED: POTASSIUM CHLORIDE RIDER 20 MEQ/200 ML PREMIX IV ONE (10:37)
[2021-03-10] MEDS: POTASSIUM CHLORIDE RIDER 10 MEQ/100 ML PREMIX IV SCH ×2 (10:57→12:02)
[2021-03-10] MEDS ORDERED: hydrALAZINE 20 MG/1 ML VIAL IV PRN (12:25)
[2021-03-10] MEDS ORDERED: GLUCAGON 1 MG VIAL IM PRN (12:25)
[2021-03-10] MEDS ORDERED: DEXTROSE 50% 25 GM/50 ML SYRINGE IV PRN (12:32)
[2021-03-10] MEDS ORDERED: methylPREDNISolone SOD SUC 125 MG/2 ML VIAL IV ONE (12:50)
[2021-03-10] MEDS: LACTATED RINGERS 1,000 ML IV SCH (13:20)
[2021-03-10 13:34] LABS: Bilirubin,Urine Negative (Negative); Blood, Urine Moderate mg/dL (Negative); Glucose,Urine (UA) Negative (Negative); Hyaline Casts,Urine 3 /LPF (0-3); Ketones,Urine 5 mg/dL (Negative); Mucus,Urine Occasional /LPF (Occasional); Nitrite,Urine Negative (Negative); Protein,Urine 100 MG/DL; RBC,Urine 14 /HPF (0-4); Squamous Epithelial Cell,Urine Occasional /HPF (0-10); Urine Appearance Slightly Hazy (Clear); Urine Color Amber (Yellow); Urine Specific Gravity 1.018 (1.001-1.035); Urine Urobilinogen < 2.0 EU/DL (0.2-1.0)
[2021-03-10 13:41] LABS: Hepatitis B Core IgM Quant 0.14 Index; Hepatitis B Surface Ag Quant < 0.10 Index; Hepatitis B Surface Ag Result Non-Reactive (NonReactive); Hepatitis C Virus Ab Quant 0.04 Index; Hepatitis C Virus Ab Result Non-Reactive (NonReactive)
[2021-03-10] MEDS ORDERED: PNEUMOCOCCAL VACCINE (13 VALENT) 0.5 ML SYRINGE IM ONE (14:42)
[2021-03-10] MEDS: INSULIN LISPRO 100 UNIT/ML SUBCUT SCH ×2 (18:31→23:21)
[2021-03-10] MEDS: ENOXAPARIN 40 MG/0.4 ML SYRINGE SUBCUT SCH (20:34)
[2021-03-10] MEDS: SILVER SULFADIAZINE 1% CREAM 25 GM TUBE TOP SCH (23:21)
[2021-03-11] MEDS: LACTATED RINGERS 1,000 ML IV SCH ×2 (00:08→12:21)
[2021-03-11] MEDS: DILTIAZEM INJ 100 MG in SODIUM CHLORIDE 0.9% 100 ML IV SCH ×3 (00:09→18:28)
[2021-03-11 05:08] LABS: Basophils % 0.7 % (0.0-0.8); Hematocrit 33.3 VOL% (42.0-52.0); Hemoglobin 11.1 GM/DL (14.0-18.0); Immature Granulocytes % 1.4 %; Immature Granulocytes Absolute 0.06 #; Lymphocytes # 0.5 10*3/uL (1.4-4.0); Lymphocytes % 11.8 % (21.2-54.2); Mean Corpuscular HGB Conc 33.3 GM/DL (32-36); Mean Corpuscular Volume 102.1 FL (87-102); Mean Platelet Volume 12.5 FL (9.6-12.0); Monocytes % 7.6 % (1.7-12.7); NRBC # 0.03 10*3/uL; Neutrophils % 78.5 % (38.7-73.9); Red Blood Count 3.26 MC/CUMM (3.8-5.5); Red Cell Distribution Width 14.9 % (9.3-17.3); White Blood Count 4.2 T/CUMM (4-12)
[2021-03-11 05:12] LABS: Platelet Count 107 T/CUMM (130-400)
[2021-03-11 05:32] LABS: Atypical Lymphocytes Few; Band Neutrophils 1 % (0-10); Lymphocytes 16 % (20-55); Metamyelocytes 1 %; Nucleated Red Blood Cells 1 (0-5); Promyelocytes 1 %; Segmented Neutrophils 71 % (50-85); Total Cells Counted 100
[2021-03-11 05:33] LABS: Albumin 2.3 G/DL (3.4-5.0); Bilirubin,Total 1.6 MG/DL (0.20-1.00); Calcium 8.3 MG/DL (8.5-10.1); Giant Platelets Few; Hypochromasia 1+; Macrocytosis Slight; Osmolality,Calculated 281.7 MOS/KG (273-304); Potassium 3.9 MMOL/L (3.5-5.1); Risk Ratio 4.63; VLDL Cholesterol 29.6 MG/DL
[2021-03-11 05:45] LABS: Folate 6.63 NG/ML (5.38-24.0)
[2021-03-11] MEDS: INSULIN LISPRO 100 UNIT/ML SUBCUT SCH ×4 (07:30→20:06)
[2021-03-11] MEDS ORDERED: MAGNESIUM SULF RIDER 4 GM/100 ML PREMIX IV PRN (08:36)
[2021-03-11] MEDS ORDERED: METOPROLOL TARTRATE 5 MG/5 ML VIAL IV ONE ×2 (10:28→10:36)
[2021-03-11 10:44] LABS: ABG Base Excess -0.7 MMOL/L (-2.5-2.5); ABG HCO3 23.8 MMOL/L (20-26); ABG Oxygen Saturation 99.6 % (95-100); ABG PCO2 22.1 MM HG (35-48); ABG PH 7.567 (7.35-7.45); ABG TCO2 18.2 MMOL/L (23-27)
[2021-03-11] MEDS ORDERED: DIGOXIN 0.5 MG/2 ML AMP IV ONE ×2 (10:51→12:00)
[2021-03-11 11:26] LABS: Calcium 8.6 MG/DL (8.5-10.1); Osmolality,Calculated 287.3 MOS/KG (273-304); Potassium 3.7 MMOL/L (3.5-5.1)
[2021-03-11 11:35] LABS: Amorphous Crystals,Urine Occasional /HPF (Few); Bacteria,Urine Occasional /HPF (Few); Bilirubin,Urine Negative (Negative); Blood, Urine Moderate mg/dL (Negative); Glucose,Urine (UA) 50 mg/dL (Negative); Hyaline Casts,Urine 1 /LPF (0-3); Ketones,Urine Negative (Negative); Mucus,Urine Occasional /LPF (Occasional); Nitrite,Urine Negative (Negative); Protein,Urine 100 MG/DL; RBC,Urine 22 /HPF (0-4); Squamous Epithelial Cell,Urine Occasional /HPF (0-10); Urine Appearance Slightly Hazy (Clear); Urine Color Amber (Yellow); Urine Specific Gravity 1.016 (1.001-1.035)
[2021-03-11] MEDS: predniSONE 20 MG TABLET PO SCH (12:56)
[2021-03-11] MEDS: PANTOPRAZOLE 40 MG TABLET PO SCH (12:56)
[2021-03-11] MEDS: VANCOMYCIN INJ 2,000 MG in SODIUM CHLORIDE 0.9% 500 ML IV SCH (13:38)
[2021-03-11] MEDS: KETOROLAC 30 MG/1 ML VIAL IV PRN (13:55)
[2021-03-11] MEDS: MAGNESIUM SULF RIDER 2 GM/50 ML PREMIX IV PRN (14:02)
[2021-03-11] MEDS: SILVER SULFADIAZINE 1% CREAM 25 GM TUBE TOP SCH ×2 (14:45→22:00)
[2021-03-11] MEDS: RIFAMPIN INJ 600 MG in SODIUM CHLORIDE 0.9% 100 ML IV SCH (15:31)
[2021-03-11] MEDS ORDERED: AMIODARONE INJ 150 MG in DEXTROSE 5% 100 ML IV ONE (18:47)
[2021-03-11] MEDS ORDERED: AMIODARONE INJ 450 MG in DEXTROSE 5% 241 ML IV SCH (19:00)
[2021-03-11] MEDS: ENOXAPARIN 40 MG/0.4 ML SYRINGE SUBCUT SCH (20:05)
[2021-03-12] MEDS: LACTATED RINGERS 1,000 ML IV SCH ×3 (01:05→12:10)
[2021-03-12] MEDS: VANCOMYCIN INJ 2,000 MG in SODIUM CHLORIDE 0.9% 500 ML IV SCH ×2 (02:05→15:53)
[2021-03-12 05:42] LABS: Basophils # 0.1 10*3/uL (0.0-0.2); Basophils % 1.6 % (0.0-0.8); Hematocrit 30.3 VOL% (42.0-52.0); Immature Granulocytes Absolute 0.05 #; Lymphocytes # 0.6 10*3/uL (1.4-4.0); Lymphocytes % 10.9 % (21.2-54.2); Mean Corpuscular Volume 103.4 FL (87-102); Mean Platelet Volume 12.7 FL (9.6-12.0); Monocytes % 5.4 % (1.7-12.7); NRBC # 0.02 10*3/uL; Neutrophils % 81.1 % (38.7-73.9); Red Blood Count 2.93 MC/CUMM (3.8-5.5); Red Cell Distribution Width 15.1 % (9.3-17.3); White Blood Count 5.2 T/CUMM (4-12)
[2021-03-12 05:43] LABS: Platelet Count 81 T/CUMM (130-400)
[2021-03-12 05:44] LABS: Calcium 8.4 MG/DL (8.5-10.1); Osmolality,Calculated 289.1 MOS/KG (273-304); Potassium 3.3 MMOL/L (3.5-5.1)
[2021-03-12 06:02] LABS: Band Neutrophils 5 % (0-10); Lymphocytes 9 % (20-55); Nucleated Red Blood Cells 1 (0-5); Platelet Estimate Decreased; Segmented Neutrophils 81 % (50-85); Total Cells Counted 100
[2021-03-12 06:03] LABS: Hypochromasia Slight; Macrocytosis Slight
[2021-03-12] MEDS ORDERED: LIDOCAINE 1% 50 ML VIAL ONE (07:32)
[2021-03-12] MEDS ORDERED: propofoL 200 MG/20 ML VIAL IV ONE (07:48)
[2021-03-12] MEDS ORDERED: LIDOCAINE 2% 5 ML VIAL ONE (07:48)
[2021-03-12] MEDS ORDERED: ETOMIDATE 40 MG/20 ML VIAL IV ONE (07:48)
[2021-03-12] MEDS: INSULIN LISPRO 100 UNIT/ML SUBCUT SCH ×4 (08:54→21:45)
[2021-03-12] MEDS: predniSONE 20 MG TABLET PO SCH (09:20)
[2021-03-12] MEDS: PANTOPRAZOLE 40 MG TABLET PO SCH (09:20)
[2021-03-12] MEDS: DILTIAZEM INJ 100 MG in SODIUM CHLORIDE 0.9% 100 ML IV SCH (09:33)
[2021-03-12] MEDS: SILVER SULFADIAZINE 1% CREAM 25 GM TUBE TOP SCH ×2 (12:12→21:45)
[2021-03-12] MEDS: RIFAMPIN INJ 600 MG in SODIUM CHLORIDE 0.9% 100 ML IV SCH (15:55)
[2021-03-12] MEDS: KETOROLAC 30 MG/1 ML VIAL IV PRN ×2 (15:55→23:02)
[2021-03-12] MEDS: ENOXAPARIN 40 MG/0.4 ML SYRINGE SUBCUT SCH (21:44)
[2021-03-13 02:15] LABS: Basophils % 0.4 % (0.0-0.8); Hematocrit 32.4 VOL% (42.0-52.0); Hemoglobin 10.7 GM/DL (14.0-18.0); Immature Granulocytes Absolute 0.17 #; Lymphocytes # 0.6 10*3/uL (1.4-4.0); Lymphocytes % 6.5 % (21.2-54.2); Mean Corpuscular Volume 101.3 FL (87-102); Mean Platelet Volume 13.5 FL (9.6-12.0); Monocytes % 3.2 % (1.7-12.7); NRBC # 0.02 10*3/uL; Neutrophils % 87.9 % (38.7-73.9); White Blood Count 8.4 T/CUMM (4-12)
[2021-03-13 02:20] LABS: Calcium 8.8 MG/DL (8.5-10.1); Platelet Count 64 T/CUMM (130-400); Potassium 3.9 MMOL/L (3.5-5.1)
[2021-03-13 02:40] LABS: Band Neutrophils 3 % (0-10); Lymphocytes 7 % (20-55); Metamyelocytes 5 %; Segmented Neutrophils 82 % (50-85)
[2021-03-13 02:41] LABS: Hypochromasia 2+; Platelet Estimate Decreased; Target Cells 1+; Total Cells Counted 100
[2021-03-13] MEDS: SILVER SULFADIAZINE 1% CREAM 25 GM TUBE TOP SCH ×2 (09:25→22:24)
[2021-03-13] MEDS: LACTATED RINGERS 1,000 ML IV SCH ×3 (09:25→22:21)
[2021-03-13] MEDS: predniSONE 20 MG TABLET PO SCH (09:25)
[2021-03-13] MEDS: PANTOPRAZOLE 40 MG TABLET PO SCH (09:25)
[2021-03-13] MEDS: INSULIN LISPRO 100 UNIT/ML SUBCUT SCH ×5 (10:12→22:24)
[2021-03-13] MEDS: ONDANSETRON 4 MG/2 ML VIAL IV PRN ×2 (11:22→15:39)
[2021-03-13] MEDS: carvediloL 6.25 MG TABLET PO SCH ×2 (12:43→18:08)
[2021-03-13] MEDS ORDERED: VANCOMYCIN INJ 1,000 MG in SODIUM CHLORIDE 0.9% 250 ML IV SCH (15:00)
[2021-03-13] MEDS: ENOXAPARIN 40 MG/0.4 ML SYRINGE SUBCUT SCH (22:24)
[2021-03-14 04:57] LABS: Basophils % 0.2 % (0.0-0.8); Eosinophils % 0.1 % (0.00-10.9); Hemoglobin 9.3 GM/DL (14.0-18.0); Immature Granulocytes % 3.1 %; Immature Granulocytes Absolute 0.31 #; Lymphocytes # 0.8 10*3/uL (1.4-4.0); Lymphocytes % 8.4 % (21.2-54.2); Mean Corpuscular HGB Conc 33.2 GM/DL (32-36); Mean Corpuscular Volume 100.7 FL (87-102); Mean Platelet Volume 14.3 FL (9.6-12.0); Monocytes % 3.6 % (1.7-12.7); NRBC # 0.02 10*3/uL; Neutrophils % 84.6 % (38.7-73.9); Platelet Count 106 T/CUMM (130-400); Red Blood Count 2.78 MC/CUMM (3.8-5.5); Red Cell Distribution Width 15.4 % (9.3-17.3)
[2021-03-14 05:18] LABS: Band Neutrophils 1 % (0-10); Hypochromasia 1+; Lymphocytes 10 % (20-55); Microcytosis 1+; Segmented Neutrophils 87 % (50-85); Total Cells Counted 100
[2021-03-14 05:21] LABS: Albumin 1.5 G/DL (3.4-5.0); Bilirubin,Total 2.9 MG/DL (0.20-1.00); Calcium 8.6 MG/DL (8.5-10.1); Osmolality,Calculated 300.6 MOS/KG (273-304); Potassium 3.5 MMOL/L (3.5-5.1); Total Protein 5.3 G/DL (6.4-8.2)
[2021-03-14 05:46] LABS: Calcium 8.6 MG/DL (8.5-10.1); Osmolality,Calculated 299.6 MOS/KG (273-304); Potassium 3.5 MMOL/L (3.5-5.1)
[2021-03-14] MEDS: predniSONE 20 MG TABLET PO SCH (10:42)
[2021-03-14] MEDS: INSULIN LISPRO 100 UNIT/ML SUBCUT SCH ×4 (10:42→21:23)
[2021-03-14] MEDS: LACTATED RINGERS 1,000 ML IV SCH ×2 (10:42→21:22)
[2021-03-14] MEDS: SILVER SULFADIAZINE 1% CREAM 25 GM TUBE TOP SCH ×2 (10:43→21:23)
[2021-03-14] MEDS: carvediloL 6.25 MG TABLET PO SCH ×2 (10:43→17:12)
[2021-03-14] MEDS: PANTOPRAZOLE 40 MG TABLET PO SCH (10:43)
[2021-03-14] MEDS: ENOXAPARIN 40 MG/0.4 ML SYRINGE SUBCUT SCH (21:23)
[2021-03-14] MEDS: KETOROLAC 30 MG/1 ML VIAL IV PRN (21:24)
[2021-03-15 05:15] LABS: Basophils # 0.1 10*3/uL (0.0-0.2); Basophils % 0.4 % (0.0-0.8); Eosinophils % 0.3 % (0.00-10.9); Hemoglobin 9.1 GM/DL (14.0-18.0); Immature Granulocytes % 5.4 %; Immature Granulocytes Absolute 0.66 #; Lymphocytes # 1.4 10*3/uL (1.4-4.0); Lymphocytes % 11.4 % (21.2-54.2); Mean Corpuscular HGB Conc 32.5 GM/DL (32-36); Mean Corpuscular Volume 101.8 FL (87-102); Mean Platelet Volume 12.9 FL (9.6-12.0); Monocytes % 5.3 % (1.7-12.7); NRBC # 0.03 10*3/uL; Neutrophils % 77.2 % (38.7-73.9); Red Blood Count 2.75 MC/CUMM (3.8-5.5); Red Cell Distribution Width 15.8 % (9.3-17.3); White Blood Count 12.2 T/CUMM (4-12)
[2021-03-15 05:18] LABS: Platelet Count 150 T/CUMM (130-400)
[2021-03-15 05:39] LABS: Hypochromasia 1+; Lymphocytes 9 % (20-55); Microcytosis 1+; Platelet Estimate Adequate; Segmented Neutrophils 88 % (50-85); Total Cells Counted 100
[2021-03-15 05:40] LABS: Calcium 8.2 MG/DL (8.5-10.1); Osmolality,Calculated 296.4 MOS/KG (273-304); Potassium 3.3 MMOL/L (3.5-5.1)
[2021-03-15] MEDS: LACTATED RINGERS 1,000 ML IV SCH (06:35)
[2021-03-15] MEDS: INSULIN LISPRO 100 UNIT/ML SUBCUT SCH ×4 (08:28→20:40)
[2021-03-15] MEDS: predniSONE 20 MG TABLET PO SCH (10:05)
[2021-03-15] MEDS: PANTOPRAZOLE 40 MG TABLET PO SCH (10:06)
[2021-03-15] MEDS: carvediloL 6.25 MG TABLET PO SCH ×2 (10:06→19:17)
[2021-03-15] MEDS: SILVER SULFADIAZINE 1% CREAM 25 GM TUBE TOP SCH ×2 (10:06→20:41)
[2021-03-15] MEDS: MORPHINE 2 MG/1 ML SYRINGE IV PRN ×2 (14:20→20:40)
[2021-03-15] MEDS: metroNIDAZOLE INJ 500 MG/100 ML PREMIX IV SCH (19:16)
[2021-03-15] MEDS: ENOXAPARIN 40 MG/0.4 ML SYRINGE SUBCUT SCH (20:40)
[2021-03-15] MEDS: cefTRIAXone 1,000 MG in SODIUM CHLORIDE 0.9% 100 ML IV SCH (20:40)
[2021-03-16] MEDS: LACTATED RINGERS 1,000 ML IV SCH ×4 (01:47→20:55)
[2021-03-16] MEDS: metroNIDAZOLE INJ 500 MG/100 ML PREMIX IV SCH ×2 (02:43→10:55)
[2021-03-16 07:05] LABS: Basophils # 0.1 10*3/uL (0.0-0.2); Basophils % 0.4 % (0.0-0.8); Eosinophils % 0.2 % (0.00-10.9); Hematocrit 26.4 VOL% (42.0-52.0); Hemoglobin 8.5 GM/DL (14.0-18.0); Immature Granulocytes Absolute 1.15 #; Lymphocytes # 1.7 10*3/uL (1.4-4.0); Lymphocytes % 10.5 % (21.2-54.2); Mean Corpuscular HGB Conc 32.2 GM/DL (32-36); Mean Corpuscular Volume 102.3 FL (87-102); Mean Platelet Volume 13.4 FL (9.6-12.0); Monocytes % 5.8 % (1.7-12.7); NRBC # 0.08 10*3/uL; Neutrophils % 76.1 % (38.7-73.9); Platelet Count 234 T/CUMM (130-400); Red Blood Count 2.58 MC/CUMM (3.8-5.5); Red Cell Distribution Width 15.9 % (9.3-17.3); White Blood Count 16.5 T/CUMM (4-12)
[2021-03-16 07:14] LABS: Osmolality,Calculated 282.4 MOS/KG (273-304); Potassium 3.8 MMOL/L (3.5-5.1)
[2021-03-16 07:27] LABS: Band Neutrophils 1 % (0-10); Hypochromasia 1+; Lymphocytes 9 % (20-55); Microcytosis Slight; Nucleated Red Blood Cells 1 (0-5); Platelet Estimate Adequate; Segmented Neutrophils 87 % (50-85); Total Cells Counted 100
[2021-03-16] MEDS: INSULIN LISPRO 100 UNIT/ML SUBCUT SCH ×4 (08:30→20:56)
[2021-03-16] MEDS: carvediloL 6.25 MG TABLET PO SCH ×3 (10:22→16:17)
[2021-03-16] MEDS: PANTOPRAZOLE 40 MG TABLET PO SCH (10:22)
[2021-03-16] MEDS: predniSONE 20 MG TABLET PO SCH (10:22)
[2021-03-16] MEDS: SILVER SULFADIAZINE 1% CREAM 25 GM TUBE TOP SCH ×2 (12:07→20:57)
[2021-03-16] MEDS: metroNIDAZOLE 500 MG TABLET PO SCH ×2 (15:55→20:57)
[2021-03-16] MEDS: MORPHINE 2 MG/1 ML SYRINGE IV PRN (18:38)
[2021-03-16] MEDS: cefTRIAXone 1,000 MG in SODIUM CHLORIDE 0.9% 100 ML IV SCH (20:55)
[2021-03-16] MEDS: ENOXAPARIN 40 MG/0.4 ML SYRINGE SUBCUT SCH (20:56)
[2021-03-17 05:16] LABS: Basophils # 0.1 10*3/uL (0.0-0.2); Basophils % 0.2 % (0.0-0.8); Eosinophils % 0.1 % (0.00-10.9); Hematocrit 24.8 VOL% (42.0-52.0); Hemoglobin 8.2 GM/DL (14.0-18.0); Immature Granulocytes % 6.3 %; Immature Granulocytes Absolute 1.38 #; Lymphocytes # 2.2 10*3/uL (1.4-4.0); Lymphocytes % 9.9 % (21.2-54.2); Mean Corpuscular HGB Conc 33.1 GM/DL (32-36); Mean Corpuscular Volume 100.4 FL (87-102); Mean Platelet Volume 12.6 FL (9.6-12.0); Monocytes % 6.1 % (1.7-12.7); NRBC # 0.08 10*3/uL; Neutrophils % 77.4 % (38.7-73.9); Platelet Count 306 T/CUMM (130-400); Red Blood Count 2.47 MC/CUMM (3.8-5.5); Red Cell Distribution Width 15.9 % (9.3-17.3); White Blood Count 21.8 T/CUMM (4-12)
[2021-03-17 05:51] LABS: Calcium 7.9 MG/DL (8.5-10.1); Osmolality,Calculated 293.6 MOS/KG (273-304); Potassium 3.3 MMOL/L (3.5-5.1)
[2021-03-17 06:02] LABS: Band Neutrophils 1 % (0-10); Hypochromasia 1+; Lymphocytes 5 % (20-55); Microcytosis 1+; Platelet Estimate Adequate; Segmented Neutrophils 88 % (50-85); Total Cells Counted 100
[2021-03-17] MEDS: carvediloL 6.25 MG TABLET PO SCH ×2 (09:58→16:45)
[2021-03-17] MEDS: PANTOPRAZOLE 40 MG TABLET PO SCH (09:58)
[2021-03-17] MEDS: INSULIN LISPRO 100 UNIT/ML SUBCUT SCH ×4 (09:58→21:27)
[2021-03-17] MEDS: metroNIDAZOLE 500 MG TABLET PO SCH ×3 (09:58→21:25)
[2021-03-17] MEDS: predniSONE 20 MG TABLET PO SCH (09:58)
[2021-03-17] MEDS: MORPHINE 2 MG/1 ML SYRINGE IV PRN (09:59)
[2021-03-17] MEDS: SILVER SULFADIAZINE 1% CREAM 25 GM TUBE TOP SCH ×2 (10:00→21:27)
[2021-03-17] MEDS ORDERED: POTASSIUM CHLORIDE 20 MEQ TABLET PO ONE (12:53)
[2021-03-17] MEDS: CEFTAROLINE 600 MG in SODIUM CHLORIDE 0.9% 100 ML IV SCH ×2 (15:15→21:31)
[2021-03-17] MEDS: ENOXAPARIN 40 MG/0.4 ML SYRINGE SUBCUT SCH (21:25)
[2021-03-18] MEDS: CEFTAROLINE 600 MG in SODIUM CHLORIDE 0.9% 100 ML IV SCH ×3 (05:10→21:59)
[2021-03-18 05:43] LABS: Basophils # 0.1 10*3/uL (0.0-0.2); Basophils % 0.2 % (0.0-0.8); Hematocrit 24.7 VOL% (42.0-52.0); Hemoglobin 8.2 GM/DL (14.0-18.0); Immature Granulocytes % 3.9 %; Immature Granulocytes Absolute 0.99 #; Lymphocytes # 1.9 10*3/uL (1.4-4.0); Lymphocytes % 7.3 % (21.2-54.2); Mean Corpuscular HGB Conc 33.2 GM/DL (32-36); Mean Corpuscular Volume 99.6 FL (87-102); Mean Platelet Volume 12.9 FL (9.6-12.0); Monocytes % 5.8 % (1.7-12.7); NRBC # 0.06 10*3/uL; Neutrophils % 82.8 % (38.7-73.9); Platelet Count 342 T/CUMM (130-400); Red Blood Count 2.48 MC/CUMM (3.8-5.5); Red Cell Distribution Width 15.8 % (9.3-17.3); White Blood Count 25.5 T/CUMM (4-12)
[2021-03-18 06:06] LABS: Calcium 8.3 MG/DL (8.5-10.1); Osmolality,Calculated 296.6 MOS/KG (273-304); Potassium 3.7 MMOL/L (3.5-5.1)
[2021-03-18 06:20] LABS: Lymphocytes 8 % (20-55); Metamyelocytes 1 %; Platelet Estimate Normal; Segmented Neutrophils 86 % (50-85); Target Cells 1+; Total Cells Counted 100
[2021-03-18 06:21] LABS: Microcytosis Slight; Ovalocytes Few
[2021-03-18] MEDS: LACTATED RINGERS 1,000 ML IV SCH ×3 (08:10→21:59)
[2021-03-18] MEDS: predniSONE 20 MG TABLET PO SCH (09:54)
[2021-03-18] MEDS: PANTOPRAZOLE 40 MG TABLET PO SCH (09:55)
[2021-03-18] MEDS: metroNIDAZOLE 500 MG TABLET PO SCH ×3 (09:55→22:00)
[2021-03-18] MEDS: carvediloL 6.25 MG TABLET PO SCH ×2 (09:55→16:19)
[2021-03-18] MEDS: SILVER SULFADIAZINE 1% CREAM 25 GM TUBE TOP SCH ×2 (09:55→22:00)
[2021-03-18] MEDS: INSULIN LISPRO 100 UNIT/ML SUBCUT SCH ×4 (09:56→22:00)
[2021-03-18] MEDS: ENOXAPARIN 40 MG/0.4 ML SYRINGE SUBCUT SCH (22:00)
[2021-03-19 13:29] LABS: Basophils # 0.1 10*3/uL (0.0-0.2); Basophils % 0.2 % (0.0-0.8); Eosinophils % 0.1 % (0.00-10.9); Hematocrit 24.6 VOL% (42.0-52.0); Immature Granulocytes % 2.7 %; Immature Granulocytes Absolute 0.83 #; Lymphocytes # 1.6 10*3/uL (1.4-4.0); Lymphocytes % 5.2 % (21.2-54.2); Mean Corpuscular HGB Conc 32.5 GM/DL (32-36); Mean Corpuscular Volume 100.8 FL (87-102); Mean Platelet Volume 12.8 FL (9.6-12.0); Monocytes % 5.9 % (1.7-12.7); NRBC # 0.06 10*3/uL; Neutrophils % 85.9 % (38.7-73.9); Platelet Count 400 T/CUMM (130-400); Red Blood Count 2.44 MC/CUMM (3.8-5.5); Red Cell Distribution Width 16.4 % (9.3-17.3); White Blood Count 30.3 T/CUMM (4-12)
[2021-03-19 13:51] LABS: Calcium 7.9 MG/DL (8.5-10.1); Osmolality,Calculated 298.3 MOS/KG (273-304); Potassium 3.8 MMOL/L (3.5-5.1)
[2021-03-19 14:11] LABS: Eosinophils 1 % (0-10); Lymphocytes 8 % (20-55); Segmented Neutrophils 86 % (50-85)
[2021-03-19 14:12] LABS: Platelet Estimate Increased; Polychromasia Slight; Target Cells Few; Tear Drop Cells Few; Total Cells Counted 100
[2021-03-19] MEDS: CEFTAROLINE 600 MG in SODIUM CHLORIDE 0.9% 100 ML IV SCH ×3 (14:21→21:38)
[2021-03-19] MEDS: LACTATED RINGERS 1,000 ML IV SCH (14:38)
[2021-03-19] MEDS: INSULIN LISPRO 100 UNIT/ML SUBCUT SCH ×4 (14:50→21:38)
[2021-03-19] MEDS: carvediloL 6.25 MG TABLET PO SCH ×2 (14:53→17:27)
[2021-03-19] MEDS: metroNIDAZOLE 500 MG TABLET PO SCH ×3 (14:53→21:38)
[2021-03-19] MEDS: PANTOPRAZOLE 40 MG TABLET PO SCH (14:54)
[2021-03-19] MEDS: predniSONE 20 MG TABLET PO SCH (14:54)
[2021-03-19] MEDS: SILVER SULFADIAZINE 1% CREAM 25 GM TUBE TOP SCH ×2 (14:54→21:40)
[2021-03-19] MEDS: COLCHICINE 0.6 MG CAPSULE PO SCH ×2 (16:34→21:38)
[2021-03-19] MEDS: ENOXAPARIN 40 MG/0.4 ML SYRINGE SUBCUT SCH (21:38)
[2021-03-20] MEDS: CEFTAROLINE 600 MG in SODIUM CHLORIDE 0.9% 100 ML IV SCH ×3 (05:47→21:24)
[2021-03-20 06:09] LABS: Basophils % 0.1 % (0.0-0.8); Hematocrit 24.3 VOL% (42.0-52.0); Hemoglobin 7.5 GM/DL (14.0-18.0); Immature Granulocytes % 2.3 %; Immature Granulocytes Absolute 0.67 #; Lymphocytes # 1.8 10*3/uL (1.4-4.0); Mean Corpuscular HGB Conc 30.9 GM/DL (32-36); Mean Corpuscular Volume 103.4 FL (87-102); Mean Platelet Volume 12.9 FL (9.6-12.0); Monocytes % 5.5 % (1.7-12.7); NRBC # 0.03 10*3/uL; Neutrophils % 86.1 % (38.7-73.9); Platelet Count 382 T/CUMM (130-400); Red Blood Count 2.35 MC/CUMM (3.8-5.5); White Blood Count 29.3 T/CUMM (4-12)
[2021-03-20 06:28] LABS: Calcium 8.1 MG/DL (8.5-10.1); Osmolality,Calculated 293.6 MOS/KG (273-304); Potassium 4.1 MMOL/L (3.5-5.1)
[2021-03-20 06:32] LABS: Hypochromasia 1+; Lymphocytes 5 % (20-55); Microcytosis 1+; Nucleated Red Blood Cells 1 (0-5); Platelet Estimate Adequate; Segmented Neutrophils 92 % (50-85); Total Cells Counted 100
[2021-03-20] MEDS ORDERED: ETOMIDATE 20 MG/10 ML VIAL IV ONE (07:45)
[2021-03-20] MEDS ORDERED: LIDOCAINE 2% 5 ML VIAL ONE (07:45)
[2021-03-20] MEDS ORDERED: propofoL 200 MG/20 ML VIAL IV ONE (07:45)
[2021-03-20] MEDS: metroNIDAZOLE 500 MG TABLET PO SCH ×3 (09:50→21:23)
[2021-03-20] MEDS: COLCHICINE 0.6 MG CAPSULE PO SCH (09:50)
[2021-03-20] MEDS: SILVER SULFADIAZINE 1% CREAM 25 GM TUBE TOP SCH ×2 (09:51→21:00)
[2021-03-20] MEDS: carvediloL 6.25 MG TABLET PO SCH ×2 (09:51→17:13)
[2021-03-20] MEDS: PANTOPRAZOLE 40 MG TABLET PO SCH (09:51)
[2021-03-20 10:13] LABS: % Iron Saturation 13.5 % (18-50)
[2021-03-20] MEDS: INSULIN LISPRO 100 UNIT/ML SUBCUT SCH ×3 (11:14→17:13)
[2021-03-20] MEDS: GENTAMICIN INJ 60 MG in SODIUM CHLORIDE 0.9% 100 ML IV SCH (17:13)
[2021-03-20] MEDS: MORPHINE 2 MG/1 ML SYRINGE IV PRN (17:14)
[2021-03-20] MEDS: ENOXAPARIN 40 MG/0.4 ML SYRINGE SUBCUT SCH (21:33)
[2021-03-21] MEDS: INSULIN LISPRO 100 UNIT/ML SUBCUT SCH ×5 (01:26→20:21)
[2021-03-21] MEDS: GENTAMICIN INJ 60 MG in SODIUM CHLORIDE 0.9% 100 ML IV SCH ×3 (01:31→17:46)
[2021-03-21 05:14] LABS: Basophils % 0.1 % (0.0-0.8); Eosinophils % 0.1 % (0.00-10.9); Hematocrit 28.3 VOL% (42.0-52.0); Hemoglobin 8.8 GM/DL (14.0-18.0); Immature Granulocytes % 1.8 %; Immature Granulocytes Absolute 0.52 #; Lymphocytes # 1.8 10*3/uL (1.4-4.0); Lymphocytes % 6.3 % (21.2-54.2); Mean Corpuscular HGB Conc 31.1 GM/DL (32-36); Mean Corpuscular Volume 102.5 FL (87-102); Mean Platelet Volume 12.2 FL (9.6-12.0); Monocytes % 6.9 % (1.7-12.7); NRBC # 0.03 10*3/uL; Neutrophils % 84.8 % (38.7-73.9); Platelet Count 477 T/CUMM (130-400); Red Blood Count 2.76 MC/CUMM (3.8-5.5); White Blood Count 28.3 T/CUMM (4-12)
[2021-03-21 05:36] LABS: Calcium 8.2 MG/DL (8.5-10.1); Osmolality,Calculated 293.6 MOS/KG (273-304); Potassium 4.2 MMOL/L (3.5-5.1)
[2021-03-21] MEDS: CEFTAROLINE 600 MG in SODIUM CHLORIDE 0.9% 100 ML IV SCH ×3 (05:37→20:20)
[2021-03-21 05:40] LABS: Hypochromasia 1+; Lymphocytes 3 % (20-55); Microcytosis 1+; Platelet Estimate Adequate; Segmented Neutrophils 88 % (50-85); Total Cells Counted 100
[2021-03-21] MEDS: carvediloL 6.25 MG TABLET PO SCH ×2 (09:28→17:46)
[2021-03-21] MEDS: metroNIDAZOLE 500 MG TABLET PO SCH (09:28)
[2021-03-21] MEDS: PANTOPRAZOLE 40 MG TABLET PO SCH (09:28)
[2021-03-21] MEDS: SILVER SULFADIAZINE 1% CREAM 25 GM TUBE TOP SCH ×2 (09:28→20:21)
[2021-03-21] MEDS: FERROUS SULFATE 325 MG TABLET PO SCH (11:35)
[2021-03-21] MEDS: MORPHINE 2 MG/1 ML SYRINGE IV PRN (11:59)
[2021-03-21] MEDS: BIMATOPROST 0.01% OPH SOLN 2.5 ML BOTTLE BOTH EYES SCH (20:19)
[2021-03-21] MEDS: ENOXAPARIN 40 MG/0.4 ML SYRINGE SUBCUT SCH (20:19)
[2021-03-22] MEDS: GENTAMICIN INJ 60 MG in SODIUM CHLORIDE 0.9% 100 ML IV SCH ×3 (00:20→18:09)
[2021-03-22 05:33] LABS: Basophils # 0.1 10*3/uL (0.0-0.2); Basophils % 0.2 % (0.0-0.8); Eosinophils # 0.1 10*3/uL (0.0-0.87); Eosinophils % 0.4 % (0.00-10.9); Hematocrit 24.3 VOL% (42.0-52.0); Hemoglobin 7.8 GM/DL (14.0-18.0); Immature Granulocytes % 1.8 %; Immature Granulocytes Absolute 0.49 #; Lymphocytes # 1.7 10*3/uL (1.4-4.0); Lymphocytes % 6.1 % (21.2-54.2); Mean Corpuscular HGB Conc 32.1 GM/DL (32-36); Mean Platelet Volume 11.6 FL (9.6-12.0); Neutrophils % 85.5 % (38.7-73.9); Platelet Count 502 T/CUMM (130-400); Red Blood Count 2.43 MC/CUMM (3.8-5.5); Red Cell Distribution Width 16.9 % (9.3-17.3); White Blood Count 27.1 T/CUMM (4-12)
[2021-03-22] MEDS: CEFTAROLINE 600 MG in SODIUM CHLORIDE 0.9% 100 ML IV SCH ×3 (05:50→21:13)
[2021-03-22 05:51] LABS: Osmolality,Calculated 295.3 MOS/KG (273-304); Potassium 3.8 MMOL/L (3.5-5.1)
[2021-03-22 06:05] LABS: Hypochromasia 1+; Lymphocytes 7 % (20-55); Microcytosis 1+; Platelet Estimate Adequate; Segmented Neutrophils 92 % (50-85); Total Cells Counted 100
[2021-03-22 06:06] LABS: Target Cells Slight
[2021-03-22] MEDS: INSULIN LISPRO 100 UNIT/ML SUBCUT SCH ×4 (08:25→22:43)
[2021-03-22] MEDS: carvediloL 6.25 MG TABLET PO SCH ×2 (09:16→18:09)
[2021-03-22] MEDS: PANTOPRAZOLE 40 MG TABLET PO SCH (09:16)
[2021-03-22] MEDS: FERROUS SULFATE 325 MG TABLET PO SCH (09:17)
[2021-03-22] MEDS: SILVER SULFADIAZINE 1% CREAM 25 GM TUBE TOP SCH ×2 (09:17→21:14)
[2021-03-22] MEDS: DEXTROSE 5% 1,000 ML IV SCH (11:08)
[2021-03-22] MEDS: ENOXAPARIN 40 MG/0.4 ML SYRINGE SUBCUT SCH (21:14)
[2021-03-22] MEDS: BIMATOPROST 0.01% OPH SOLN 2.5 ML BOTTLE BOTH EYES SCH (21:14)
[2021-03-23 05:46] LABS: Basophils # 0.1 10*3/uL (0.0-0.2); Basophils % 0.2 % (0.0-0.8); Eosinophils # 0.2 10*3/uL (0.0-0.87); Eosinophils % 0.7 % (0.00-10.9); Hematocrit 27.3 VOL% (42.0-52.0); Hemoglobin 8.4 GM/DL (14.0-18.0); Immature Granulocytes % 1.3 %; Lymphocytes # 1.3 10*3/uL (1.4-4.0); Lymphocytes % 5.8 % (21.2-54.2); Mean Corpuscular HGB Conc 30.8 GM/DL (32-36); Mean Corpuscular Volume 102.2 FL (87-102); Mean Platelet Volume 11.8 FL (9.6-12.0); Monocytes % 6.3 % (1.7-12.7); Neutrophils % 85.7 % (38.7-73.9); Platelet Count 496 T/CUMM (130-400); Red Blood Count 2.67 MC/CUMM (3.8-5.5); Red Cell Distribution Width 17.2 % (9.3-17.3); White Blood Count 22.4 T/CUMM (4-12)
[2021-03-23] MEDS: CEFTAROLINE 600 MG in SODIUM CHLORIDE 0.9% 100 ML IV SCH ×3 (05:50→22:47)
[2021-03-23 06:12] LABS: Eosinophils 2 % (0-10); Hypochromasia 1+; Lymphocytes 5 % (20-55); Nucleated Red Blood Cells 1 (0-5); Segmented Neutrophils 90 % (50-85); Total Cells Counted 100
[2021-03-23 06:13] LABS: Microcytosis 1+; Ovalocytes Slight; Target Cells Slight
[2021-03-23 06:16] LABS: Calcium 8.1 MG/DL (8.5-10.1); Osmolality,Calculated 294.4 MOS/KG (273-304); Potassium 4.1 MMOL/L (3.5-5.1)
[2021-03-23] MEDS: GENTAMICIN INJ 60 MG in SODIUM CHLORIDE 0.9% 100 ML IV SCH ×2 (06:54→18:15)
[2021-03-23] MEDS: INSULIN LISPRO 100 UNIT/ML SUBCUT SCH ×3 (07:48→16:03)
[2021-03-23] MEDS: carvediloL 6.25 MG TABLET PO SCH ×2 (09:22→16:53)
[2021-03-23] MEDS: PANTOPRAZOLE 40 MG TABLET PO SCH (09:22)
[2021-03-23] MEDS: FERROUS SULFATE 325 MG TABLET PO SCH (09:22)
[2021-03-23] MEDS: DEXTROSE 5% 1,000 ML IV SCH (09:23)
[2021-03-23] MEDS: SILVER SULFADIAZINE 1% CREAM 25 GM TUBE TOP SCH ×2 (09:23→22:47)
[2021-03-23] MEDS: MORPHINE 2 MG/1 ML SYRINGE IV PRN (16:52)
[2021-03-23] MEDS ORDERED: FUROSEMIDE 20 MG/2 ML VIAL IV ONE (17:00)
[2021-03-23] MEDS: ENOXAPARIN 40 MG/0.4 ML SYRINGE SUBCUT SCH (22:46)
[2021-03-23] MEDS: BIMATOPROST 0.01% OPH SOLN 2.5 ML BOTTLE BOTH EYES SCH (22:47)
[2021-03-24] MEDS: INSULIN LISPRO 100 UNIT/ML SUBCUT SCH ×5 (00:18→20:18)
[2021-03-24] MEDS: DEXTROSE 5% 1,000 ML IV SCH ×2 (04:44→14:20)
[2021-03-24] MEDS: CEFTAROLINE 600 MG in SODIUM CHLORIDE 0.9% 100 ML IV SCH (04:46)
[2021-03-24] MEDS: GENTAMICIN INJ 60 MG in SODIUM CHLORIDE 0.9% 100 ML IV SCH (06:00)
[2021-03-24 06:17] LABS: Basophils # 0.1 10*3/uL (0.0-0.2); Basophils % 0.3 % (0.0-0.8); Eosinophils # 0.2 10*3/uL (0.0-0.87); Eosinophils % 1.2 % (0.00-10.9); Hematocrit 22.7 VOL% (42.0-52.0); Immature Granulocytes % 1.3 %; Immature Granulocytes Absolute 0.25 #; Lymphocytes # 1.3 10*3/uL (1.4-4.0); Lymphocytes % 6.7 % (21.2-54.2); Mean Corpuscular HGB Conc 30.8 GM/DL (32-36); Mean Corpuscular Volume 100.4 FL (87-102); Mean Platelet Volume 11.3 FL (9.6-12.0); Monocytes % 5.9 % (1.7-12.7); Neutrophils % 84.6 % (38.7-73.9); Platelet Count 487 T/CUMM (130-400); Red Blood Count 2.26 MC/CUMM (3.8-5.5); Red Cell Distribution Width 17.2 % (9.3-17.3); White Blood Count 18.8 T/CUMM (4-12)
[2021-03-24 06:44] LABS: Alanine Aminotransferase < 9 U/L (16-61); Albumin 1.1 G/DL (3.4-5.0); Alkaline Phosphatase 42 U/L (45-117); Aspartate Amino Transferase 13 U/L (0-37); Blood Urea Nitrogen 23 MG/DL (7-18); Calcium 8.1 MG/DL (8.5-10.1); Carbon Dioxide 23 MMOL/L (21-32); Estimated Glom Filtration Rate 75 ML/MIN; Glucose 96 MG/DL (74-106); Potassium 3.9 MMOL/L (3.5-5.1); Sodium 150 MMOL/L (136-145); Total Protein 5.4 G/DL (6.4-8.2)
[2021-03-24 07:23] LABS: Sedimentation Rate-Westergren 134 MM/HR (0-20)
[2021-03-24] MEDS ORDERED: SODIUM CHLORIDE 0.9% 1,000 ML IV PRN (08:43)
[2021-03-24] MEDS: PANTOPRAZOLE 40 MG TABLET PO SCH (10:30)
[2021-03-24] MEDS: carvediloL 6.25 MG TABLET PO SCH ×2 (10:30→16:41)
[2021-03-24] MEDS: FERROUS SULFATE 325 MG TABLET PO SCH (10:30)
[2021-03-24] MEDS: SILVER SULFADIAZINE 1% CREAM 25 GM TUBE TOP SCH ×2 (10:30→22:09)
[2021-03-24] MEDS: BIMATOPROST 0.01% OPH SOLN 2.5 ML BOTTLE BOTH EYES SCH (22:09)
[2021-03-24] MEDS: ENOXAPARIN 40 MG/0.4 ML SYRINGE SUBCUT SCH (22:09)
[2021-03-24] MEDS: MORPHINE 2 MG/1 ML SYRINGE IV PRN (23:38)
[2021-03-25 03:04] LABS: Basophils % 0.2 % (0.0-0.8); Eosinophils # 0.3 10*3/uL (0.0-0.87); Eosinophils % 1.4 % (0.00-10.9); Hematocrit 23.9 VOL% (42.0-52.0); Hemoglobin 7.4 GM/DL (14.0-18.0); Immature Granulocytes % 1.2 %; Immature Granulocytes Absolute 0.22 #; Lymphocytes # 1.4 10*3/uL (1.4-4.0); Lymphocytes % 7.8 % (21.2-54.2); Mean Platelet Volume 11.2 FL (9.6-12.0); Monocytes % 7.6 % (1.7-12.7); Neutrophils % 81.8 % (38.7-73.9); Platelet Count 484 T/CUMM (130-400); Red Blood Count 2.39 MC/CUMM (3.8-5.5); Red Cell Distribution Width 17.2 % (9.3-17.3); White Blood Count 18.3 T/CUMM (4-12)
[2021-03-25 03:21] LABS: Alanine Aminotransferase < 6 U/L (16-61); Albumin 1.3 G/DL (3.4-5.0); Alkaline Phosphatase 46 U/L (45-117); Aspartate Amino Transferase 12 U/L (0-37); Blood Urea Nitrogen 19 MG/DL (7-18); Calcium 8.2 MG/DL (8.5-10.1); Carbon Dioxide 25 MMOL/L (21-32); Estimated Glom Filtration Rate 77 ML/MIN; Glucose 117 MG/DL (74-106); Osmolality,Calculated 288.8 MOS/KG (273-304); Potassium 3.7 MMOL/L (3.5-5.1); Sodium 144 MMOL/L (136-145); Total Protein 5.7 G/DL (6.4-8.2)
[2021-03-25] MEDS: INSULIN LISPRO 100 UNIT/ML SUBCUT SCH ×4 (07:30→21:19)
[2021-03-25] MEDS: FERROUS SULFATE 325 MG TABLET PO SCH (10:02)
[2021-03-25] MEDS: carvediloL 6.25 MG TABLET PO SCH ×2 (10:02→17:48)
[2021-03-25] MEDS: PANTOPRAZOLE 40 MG TABLET PO SCH (10:02)
[2021-03-25] MEDS: DEXTROSE 5% 1,000 ML IV SCH (10:02)
[2021-03-25] MEDS: SILVER SULFADIAZINE 1% CREAM 25 GM TUBE TOP SCH ×2 (10:07→21:20)
[2021-03-25] MEDS ORDERED: FUROSEMIDE 20 MG/2 ML VIAL IV ONE (10:21)
[2021-03-25] MEDS: ENOXAPARIN 40 MG/0.4 ML SYRINGE SUBCUT SCH (21:18)
[2021-03-25] MEDS: BIMATOPROST 0.01% OPH SOLN 2.5 ML BOTTLE BOTH EYES SCH (21:20)
[2021-03-26] MEDS: MORPHINE 2 MG/1 ML SYRINGE IV PRN (00:26)
[2021-03-26 07:05] LABS: Basophils % 0.1 % (0.0-0.8); Eosinophils # 0.2 10*3/uL (0.0-0.87); Eosinophils % 1.3 % (0.00-10.9); Hematocrit 23.2 VOL% (42.0-52.0); Hemoglobin 7.2 GM/DL (14.0-18.0); Immature Granulocytes % 1.3 %; Immature Granulocytes Absolute 0.22 #; Lymphocytes # 1.2 10*3/uL (1.4-4.0); Lymphocytes % 6.7 % (21.2-54.2); Mean Corpuscular Volume 99.1 FL (87-102); Mean Platelet Volume 10.8 FL (9.6-12.0); Neutrophils % 82.6 % (38.7-73.9); Platelet Count 407 T/CUMM (130-400); Red Blood Count 2.34 MC/CUMM (3.8-5.5); Red Cell Distribution Width 16.8 % (9.3-17.3); White Blood Count 17.2 T/CUMM (4-12)
[2021-03-26 07:22] LABS: Osmolality,Calculated 283.4 MOS/KG (273-304); Potassium 3.6 MMOL/L (3.5-5.1)
[2021-03-26] MEDS: PANTOPRAZOLE 40 MG TABLET PO SCH (09:29)
[2021-03-26] MEDS: carvediloL 6.25 MG TABLET PO SCH ×2 (09:29→19:57)
[2021-03-26] MEDS: FERROUS SULFATE 325 MG TABLET PO SCH ×2 (09:29→22:41)
[2021-03-26] MEDS: INSULIN LISPRO 100 UNIT/ML SUBCUT SCH ×4 (09:30→22:40)
[2021-03-26] MEDS: SILVER SULFADIAZINE 1% CREAM 25 GM TUBE TOP SCH ×2 (09:30→21:19)
[2021-03-26] MEDS: DEXTROSE 5% 1,000 ML IV SCH (09:31)
[2021-03-26] MEDS: BIMATOPROST 0.01% OPH SOLN 2.5 ML BOTTLE BOTH EYES SCH (21:19)
[2021-03-26] MEDS: ENOXAPARIN 40 MG/0.4 ML SYRINGE SUBCUT SCH (21:19)
[2021-03-27 05:14] LABS: Osmolality,Calculated 276.8 MOS/KG (273-304); Potassium 3.9 MMOL/L (3.5-5.1)
[2021-03-27] MEDS: MAGNESIUM SULF RIDER 2 GM/50 ML PREMIX IV PRN (05:45)
[2021-03-27 05:48] LABS: Basophils % 0.2 % (0.0-0.8); Eosinophils # 0.3 10*3/uL (0.0-0.87); Eosinophils % 1.3 % (0.00-10.9); Hematocrit 24.6 VOL% (42.0-52.0); Hemoglobin 7.4 GM/DL (14.0-18.0); Immature Granulocytes % 1.1 %; Immature Granulocytes Absolute 0.23 #; Lymphocytes # 1.2 10*3/uL (1.4-4.0); Lymphocytes % 5.8 % (21.2-54.2); Mean Corpuscular HGB Conc 30.1 GM/DL (32-36); Mean Corpuscular Volume 98.8 FL (87-102); Mean Platelet Volume 11.3 FL (9.6-12.0); Monocytes % 7.9 % (1.7-12.7); Neutrophils % 83.7 % (38.7-73.9); Platelet Count 376 T/CUMM (130-400); Red Blood Count 2.49 MC/CUMM (3.8-5.5); White Blood Count 20.8 T/CUMM (4-12)
[2021-03-27 06:09] LABS: Hypochromasia 2+; Lymphocytes 5 % (20-55); Microcytosis 1+; Platelet Estimate Adequate; Segmented Neutrophils 88 % (50-85); Total Cells Counted 100
[2021-03-27] MEDS: carvediloL 6.25 MG TABLET PO SCH ×2 (10:21→16:03)
[2021-03-27] MEDS: PANTOPRAZOLE 40 MG TABLET PO SCH (10:21)
[2021-03-27] MEDS: INSULIN LISPRO 100 UNIT/ML SUBCUT SCH ×3 (10:21→16:03)
[2021-03-27] MEDS: FERROUS SULFATE 325 MG TABLET PO SCH ×2 (10:21→16:03)
[2021-03-27] MEDS: SILVER SULFADIAZINE 1% CREAM 25 GM TUBE TOP SCH (10:24)
[2021-03-27] MEDS ORDERED: CEFTAROLINE 600 MG in SODIUM CHLORIDE 0.9% 100 ML IV SCH (13:00)
[2021-03-27 16:04] VITALS: BP 128/46
== END 2021-03-27 16:21 | DRG 853 ==
LOC: EDBD → EDUNIT# → N.ED 08:14 → SUATTDRO 12:25 → N.EDINP 12:25 → N.TELEN 15:27 → N.ICU 03-11 11:10 → N.5E 03-12 14:49
PROVIDERS: ADMIT Internal Medicine; ATTEND Internal Medicine